=== PATIENT | male | born 1980 | race Caucasian/White ===

== ENCOUNTER 2022-07-06 17:44 | Emergency (ER) | payer OTHER ==
[2022-07-06] MEDS ORDERED: Acetaminophen/HYDROcodone 325-5 MG Tab PO ONE (17:45)
[2022-07-06] MEDS ORDERED: Diphtheria,Pertussis(Acell),Tetanus Vaccine 0.5 ML Syringe IM ONE (18:05)
[2022-07-06 18:43] VITALS: BP 145/85; PULSE 67
[2022-07-06] MEDS ORDERED: Lidocaine 2% Viscous Solution 15 ML UD PO ONE (19:32)
[2022-07-06] MEDS ORDERED: Cephalexin 500 MG Cap PO ONE (19:32)
== END 2022-07-06 20:40 | disposition home or self-care (01) ==
LOC: FB.ED 17:44
DX: S67.192A Crushing injury of right middle finger, initial encounter (principal); S68.112A Complete traumatic metacarpophalangeal amputation of right middle finger, initial encounter; Z79.899 Other long term (current) drug therapy; Z23 Encounter for immunization; W23.1XXA Caught, crushed, jammed, or pinched between stationary objects, initial encounter; Y99.0 Civilian activity done for income or pay
CPT/HCPCS: 73140; 90471; 90715; 99283; A9270

== ENCOUNTER 2024-10-23 07:13 | Day surgery (SDC) | payer OTHER ==
[2024-10-23] MEDS ORDERED: Propofol 200 MG/20 ML SDV IV ONE (07:14)
[2024-10-23] MEDS ORDERED: Midazolam 1 MG/ML 2 ML SDV IV ONE (07:14)
[2024-10-23] MEDS ORDERED: Ketamine 500 mg/10 ML MDV IV ONE (07:14)
[2024-10-23] MEDS ORDERED: Flumazenil 0.1 MG/ML 5 ML MDV IV ONE (07:14)
[2024-10-23] MEDS ORDERED: Lidocaine 2% 100 MG/5 ML Syringe IVPUSH ONE (07:14)
[2024-10-23] MEDS ORDERED: Sodium Chloride 0.9% 10 ML Syringe FLUSH PRN (07:15)
[2024-10-23] MEDS: Lactated Ringers 1,000 ML IV SCH (08:25)
[2024-10-23 08:34] VITALS: BP 130/88; PULSE 85
[2024-10-23] MEDS: Simethicone Drops 40 MG/0.6 ML 30 ML Bottle ONE (10:01)
== END 2024-10-23 11:20 | disposition home or self-care (01) ==
LOC: FB.SDS 07:13
PROVIDERS: ATTEND Surgery
DX: Z12.11 Encounter for screening for malignant neoplasm of colon (principal)
CPT/HCPCS: 00812; A9270-GY; J2250; J2704; J3490; J7120